=== PATIENT | male | born 1950 | race Caucasian/White ===

== ENCOUNTER 2022-12-29 01:57 | Inpatient (IN) | payer MEDICARE, OTHER ==
[2022-12-29] MEDS ORDERED: Heparin 25,000 UNITS/D5W 500 ml bag ONE (02:02)
[2022-12-29] MEDS ORDERED: Heparin 10,000 UNITS/ 10 ML VIAL ONE (02:02)
[2022-12-29] MEDS ORDERED: Morphine 4 MG/ML VIAL ONE ×2 (02:06→05:19)
[2022-12-29] MEDS ORDERED: Dextrose 50% Abboject 50 ML SYRINGE SLOW IVP PRN (04:11)
[2022-12-29] MEDS ORDERED: Glucagon 1 MG/ML KIT IM PRN (04:11)
[2022-12-29] MEDS ORDERED: Dextrose 5% in Water 1,000 ML IV PRN (04:11)
[2022-12-29] MEDS ORDERED: Electrolyte Replacement Protocol 1 EACH FS SCH (04:14)
[2022-12-29] MEDS ORDERED: Dexmedetomidine In 0.9 % NaCl 100 ML IVPB SCH (04:15)
[2022-12-29] MEDS ORDERED: Dexmedetomidine 400 MCG, Admixture Fee 1 EACH in Sodium Chloride 0.9% 96 ML IVPB SCH (04:15)
[2022-12-29] MEDS ORDERED: Sodium Chloride 0.9% 1,000 ML IV SCH ×3 (04:15→20:30)
[2022-12-29 05:25] LABS: #Eosinphils 0.1 thou/uL (0.0-0.7); #Monocytes 0.5 thou/uL (0.11-0.59); #Neutrophils 8.5 thou/uL (1.40-6.50); %Basophils 0.4 % (0.0-1.0); %Eosinophils 1.1 % (0.0-10.0); %Monocytes 5.5 % (0.0-10.0); %Neutrophils 86.6 % (42.0-75.0); Hemoglobin 10.4 g/dL (14.0-18.0); Mean Corpuscular Hemoglobin 30.1 pg (27.0-31.0); Mean Corpuscular Volume 88.4 fl (78.0-98.0); Mean Platelet Volume 9.3 fL (7.4-10.4); Platelet Count 285 10x3/uL (130-400); RBC Distribution Width 14.5 % (11.5-14.5); Red Blood Cell (RBC) Count 3.46 mill/uL (4.70-6.10); White Blood Cell (WBC) Count 9.8 10x3/uL (4.8-10.8)
[2022-12-29 05:30] LABS: Hemoglobin A1c 9.8 % (4.0-6.0)
[2022-12-29 05:37] LABS: INR-International Normal Ratio 1.2; Prothrombin Time 15.8 sec (12.0-14.7)
[2022-12-29] MEDS ORDERED: Morphine 2 MG/ML VIAL SLOW IVP SCH (05:45)
[2022-12-29 05:48] LABS: PTT 157.5 sec (22.9-36.1)
[2022-12-29 05:52] LABS: ALT (SGPT) 17 U/L (8-55); AST (SGOT) 25 U/L (5-34); Albumin 3.6 g/dL (3.4-4.8); Alkaline Phosphatase 63 U/L (40-110); Anion Gap 15 mmol/L (10-20); BUN (Urea Nitrogen) 15 mg/dL (8.4-25.7); Bilirubin, Total 0.5 mg/dL (0.2-1.2); Calc. Creatinine Clearance 0 mL/min (70-130); Calcium 8.5 mg/dL (7.8-10.44); Carbon Dioxide 20 mmol/L (23-31); Chloride 102 mmol/L (98-107); Estimated GFR 90; Globulin 2.4 g/dL (2.4-3.5); Glucose 328 mg/dL (83-110); Magnesium 1.4 mg/dL (1.6-2.6); Potassium 4.6 mmol/L (3.5-5.1); Sodium 132 mmol/L (136-145)
[2022-12-29 05:55] VITALS: BMI 30.8
[2022-12-29] MEDS: HumaLOG 300 UNITS/3 ML VIAL SC PRN ×3 (06:34→21:58)
[2022-12-29 06:58] LABS: Bacteria/HPF None Seen HPF (None Seen); Bilirubin Negative (Negative); Blood, Urine 3+ (Negative); Clarity Clear (Clear); Glucose, Urine (Dipstick) Greater than 1000 mg/dL (Negative); Ketone, Urine 40 mg/dL (Negative); Leukocyte 250 Leu/uL (Negative); Nitrite Negative (Negative); Protein, Urine (Dipstick) Negative (Neg-Trace); RBC/HPF Greater than 50 HPF (0-3); Specific Gravity, Urine 1.037 (1.002-1.036); Squamous Epithelial None Seen HPF (0-3); Urobilinogen Normal mg/dL (Less than 2); WBC/HPF Greater than 50 HPF (0-3)
[2022-12-29] MEDS ORDERED: Magnesium Sulfate In Water 4 GM in Premix Bag 1 BAG IVPB SCH (08:00)
[2022-12-29] MEDS ORDERED: Iopamidol 370 76% 100 ML VIAL ONE (08:59)
[2022-12-29] MEDS ORDERED: Pantoprazole 40 MG VIAL IVP SCH (09:00)
[2022-12-29] MEDS ORDERED: Morphine 2 MG/ML VIAL SLOW IVP PRN (09:18)
[2022-12-29] MEDS ORDERED: Ondansetron PF 4 MG/2 ML Vial IVP PRN (10:07)
[2022-12-29 10:59] LABS: Troponin I 0.989 ng/mL (< 0.028)
[2022-12-29] MEDS ORDERED: Sodium Chloride 0.9% 500 ML IV SCH (12:00)
[2022-12-29 12:01] LABS: Hemoglobin 10.2 g/dL (14.0-18.0)
[2022-12-29 14:08] LABS: INR-International Normal Ratio 1.2; PTT 27.9 sec (22.9-36.1); Prothrombin Time 15.3 sec (12.0-14.7)
[2022-12-29] MEDS ORDERED: Insulin Glargine 30 UNITS/0.3 ML VIAL SC SCH (21:00)
[2022-12-29] MEDS: Insulin Glargine 30 UNITS/0.3 ML VIAL SC SCH (21:51)
[2022-12-29] MEDS: Atorvastatin Calcium 40 MG TAB PO SCH (21:59)
[2022-12-30] MEDS: Acetaminophen 325 MG TAB PO PRN ×2 (05:16→16:41)
[2022-12-30] MEDS: HumaLOG 300 UNITS/3 ML VIAL SC PRN ×3 (06:10→20:51)
[2022-12-30] MEDS: HumuLIN 70/30 100 Unit/ ml Vial SC SCH (08:25)
[2022-12-30 08:33] LABS: #Eosinphils 0.1 thou/uL (0.0-0.7); #Monocytes 0.8 thou/uL (0.11-0.59); %Basophils 0.2 % (0.0-1.0); %Eosinophils 0.7 % (0.0-10.0); %Lymphocytes 8.5 % (21.0-51.0); %Monocytes 8.6 % (0.0-10.0); %Neutrophils 81.5 % (42.0-75.0); Hemoglobin 9.5 g/dL (14.0-18.0); Mean Corpuscular HGB CONC 33.3 g/dL (32.0-36.0); Mean Corpuscular Hemoglobin 29.8 pg (27.0-31.0); Mean Corpuscular Volume 89.3 fl (78.0-98.0); Mean Platelet Volume 9.3 fL (7.4-10.4); Platelet Count 270 10x3/uL (130-400); RBC Distribution Width 14.9 % (11.5-14.5); Red Blood Cell (RBC) Count 3.19 mill/uL (4.70-6.10); White Blood Cell (WBC) Count 9.8 10x3/uL (4.8-10.8)
[2022-12-30 09:00] LABS: ALT (SGPT) 35 U/L (8-55); AST (SGOT) 105 U/L (5-34); Albumin 3.2 g/dL (3.4-4.8); Alkaline Phosphatase 58 U/L (40-110); Anion Gap 14 mmol/L (10-20); BUN (Urea Nitrogen) 17 mg/dL (8.4-25.7); Bilirubin, Total 0.4 mg/dL (0.2-1.2); Calc. Creatinine Clearance 126 mL/min (70-130); Calcium 8.4 mg/dL (7.8-10.44); Carbon Dioxide 17 mmol/L (23-31); Chloride 107 mmol/L (98-107); Estimated GFR 93; Globulin 2.4 g/dL (2.4-3.5); Glucose 236 mg/dL (83-110); Potassium 4.4 mmol/L (3.5-5.1); Protein, Total 5.6 g/dL (5.8-8.1); Sodium 134 mmol/L (136-145)
[2022-12-30] MEDS: Losartan 25 MG TAB PO SCH (09:18)
[2022-12-30] MEDS: Clopidogrel Bisulfate 75 MG TAB PO SCH (09:18)
[2022-12-30] MEDS: Aspirin 81 mg Enteric Coated Tablet PO SCH (09:18)
[2022-12-30] MEDS: Atorvastatin Calcium 40 MG TAB PO SCH (20:51)
[2022-12-30] MEDS: Insulin Glargine 30 UNITS/0.3 ML VIAL SC SCH (20:52)
[2022-12-30] MEDS ORDERED: Melatonin 3 MG TAB PO SCH (22:30)
[2022-12-31] MEDS: HumuLIN 70/30 100 Unit/ ml Vial SC SCH (00:12)
[2022-12-31] MEDS: Losartan 25 MG TAB PO SCH (09:52)
[2022-12-31] MEDS: Clopidogrel Bisulfate 75 MG TAB PO SCH (09:53)
[2022-12-31] MEDS: Aspirin 81 mg Enteric Coated Tablet PO SCH (09:53)
[2022-12-31] MEDS: HumaLOG 300 UNITS/3 ML VIAL SC PRN (09:55)
[2022-12-31] MEDS ORDERED: HumaLOG 300 UNITS/3 ML VIAL SC SCH (11:30)
[2022-12-31 15:19] VITALS: BP 111/51; TEMP 97.7
[2022-12-31] MEDS ORDERED: Insulin Glargine 30 UNITS/0.3 ML VIAL SC SCH (21:00)
== END 2022-12-31 16:00 | disposition home or self-care (01) | DRG 246 ==
LOC: ERS 01:57 → SDC/OP 02:09 → CCU 02:58 → OBSVTOIN 02:58 → 2NO 12-30 23:55
PROVIDERS: ADMIT Internal Medicine Cardiovascular Disease; ATTEND Internal Medicine
PROC: 4A023N7 Measurement of Cardiac Sampling and Pressure, Left Heart, Percutaneous Approach (ICD-10-PCS; principal; 2022-12-29)
PROC: 027035Z Dilation of Coronary Artery, One Artery with Two Drug-eluting Intraluminal Devices, Percutaneous Approach (ICD-10-PCS; 2022-12-29)
PROC: B2151ZZ Fluoroscopy of Left Heart using Low Osmolar Contrast (ICD-10-PCS; 2022-12-29)
PROC: B2101ZZ Fluoroscopy of Single Coronary Artery using Low Osmolar Contrast (ICD-10-PCS; 2022-12-29)
PROC: B240ZZ3 Ultrasonography of Single Coronary Artery, Intravascular (ICD-10-PCS; 2022-12-29)
PROC: 5A09357 Assistance with Respiratory Ventilation, Less than 24 Consecutive Hours, Continuous Positive Airway Pressure (ICD-10-PCS; 2022-12-29)
DX: I21.19 ST elevation (STEMI) myocardial infarction involving other coronary artery of inferior wall (principal); G93.41 Metabolic encephalopathy; E87.20 Acidosis, unspecified; T82.855A Stenosis of coronary artery stent, initial encounter; D64.9 Anemia, unspecified; I10 Essential (primary) hypertension; E83.42 Hypomagnesemia; G47.33 Obstructive sleep apnea (adult) (pediatric); R31.0 Gross hematuria; I49.3 Ventricular premature depolarization; I25.2 Old myocardial infarction; F17.210 Nicotine dependence, cigarettes, uncomplicated; I25.10 Atherosclerotic heart disease of native coronary artery without angina pectoris; G89.29 Other chronic pain; M16.12 Unilateral primary osteoarthritis, left hip; M54.50 Low back pain, unspecified; E11.65 Type 2 diabetes mellitus with hyperglycemia; Z98.890 Other specified postprocedural states; Z95.5 Presence of coronary angioplasty implant and graft; Z79.82 Long term (current) use of aspirin; Z79.899 Other long term (current) drug therapy; Z85.51 Personal history of malignant neoplasm of bladder; Z79.4 Long term (current) use of insulin; Y83.8 Other surgical procedures as the cause of abnormal reaction of the patient, or of later complication, without mention of misadventure at the time of the procedure; Z88.8 Allergy status to other drugs, medicaments and biological substances
CPT/HCPCS: 36415; 36416; 71045; 72170; 76770; 80053; 80061; 81001; 83036; 83735; 84484; 85025; 85347; 85610; 85730; 86850; 86900; 86901; 92928; 92941; 92973; 92978; 93005; 93010; 93306; 93458; 93798; 94660; 96374; 96375; 96376; 99152; 99153; C1725; C1760; C1769; C1874; C1887; C1894; C9113; C9600; C9606; J1644; J1815; J2270; J3475; J3490; J7030; J7050; Q9967

== ENCOUNTER 2025-05-01 03:24 | Emergency (ER) | payer MEDICARE, OTHER ==
[2025-05-01] MEDS ORDERED: Ondansetron PF 4 MG/2 ML Vial ONE (04:02)
[2025-05-01 04:03] LABS: #Basophils 0.04 10x3/uL (0.0-0.2); #Eosinophils 0.04 10x3/uL (0.0-0.7); #Monocytes 0.51 10x3/uL (0.11-0.59); #Neutrophils 9.33 10x3/uL (1.40-6.50); %Basophils 0.4 % (0.0-1.0); %Eosinophils 0.4 % (0.0-10.0); %Lymphocytes 10.3 % (21.0-51.0); %Monocytes 4.6 % (0.0-10.0); %Neutrophils 84.0 % (42.0-75.0); Hematocrit 37.4 % (42.0-52.0); Hemoglobin 12.2 g/dL (14.0-18.0); Mean Corpuscular Hemoglobin 28.6 pg (27.0-31.0); Mean Corpuscular Volume 87.8 fL (78.0-98.0); Platelet Count 276 10x3/uL (130-400); Red Blood Cell (RBC) Count 4.26 mill/uL (4.70-6.10); White Blood Cell (WBC) Count 11.09 10x3/uL (4.8-10.8)
[2025-05-01 04:17] LABS: ALT (SGPT) 13 U/L (Less than 45); AST (SGOT) 24 U/L (11-34); Albumin 4.2 g/dL (3.1-4.5); Alkaline Phosphatase 73 U/L (40-110); Anion Gap 17 mmol/L (10-20); BUN (Urea Nitrogen) 18 mg/dL (8.4-25.7); Bilirubin, Total 0.7 mg/dL (0.3-1.2); Calc. Creatinine Clearance 0 mL/min (70-130); Calcium 9.8 mg/dL (7.8-10.44); Carbon Dioxide 23 mmol/L (23-31); Chloride 105 mmol/L (98-107); Globulin 3.3 g/dL (2.4-3.5); Glucose 213 mg/dL (83-110); Magnesium 1.5 mg/dL (1.6-2.6); Potassium 4.4 mmol/L (3.5-5.1); Sodium 141 mmol/L (136-145)
[2025-05-01 04:42] LABS: Lipase Greater than 4815 U/L (8-78)
[2025-05-01] MEDS ORDERED: Magnesium 2 GM/50 ML BAG (IN WATER) ONE (05:02)
[2025-05-01] MEDS ORDERED: Acetaminophen 325 MG TAB PO PRN (06:12)
[2025-05-01] MEDS ORDERED: Calcium Carbonate 500 MG ChewTAB PO PRN (06:12)
[2025-05-01] MEDS ORDERED: Ondansetron PF 4 MG/2 ML Vial IVP PRN (06:12)
[2025-05-01] MEDS ORDERED: Glucagon 1 MG/ML KIT IM PRN (06:13)
[2025-05-01] MEDS ORDERED: Dextrose 50% Abboject 50 ML SYRINGE SLOW IVP PRN (06:13)
[2025-05-01] MEDS ORDERED: Iopamidol 370 76% 100 ML VIAL ONE (09:20)
== END 2025-05-01 09:19 | disposition short-term general hospital (02) ==
LOC: ERS 03:24 → ERHOLD 06:16 → UNDOADMIN 06:16 → ERS 09:19
DX: K86.1 Other chronic pancreatitis (principal); I25.2 Old myocardial infarction; I10 Essential (primary) hypertension; E11.9 Type 2 diabetes mellitus without complications
CPT/HCPCS: 71275; 74177; 80053; 83036; 83690; 83735; 83880; 84484; 85025; 93005; 96365; 96366; 96375; 99285; J2270; J2405; J3475; Q9967